=== PATIENT | male | born 1970 | race Caucasian/White ===

== ENCOUNTER → 2016-04-23 | Outpatient (REF) | payer OTHER | LOC: M LAB REF 19:08 | PROVIDERS: ATTEND Physician Assistant | DX: J02.9 Acute pharyngitis, unspecified (principal) ==

== ENCOUNTER → 2016-06-10 | Outpatient (CLI) | payer OTHER | LOC: M LAB 08:34 | PROVIDERS: ATTEND Surgery | DX: N35.9 Urethral stricture, unspecified (principal) ==

== ENCOUNTER 2016-06-15 02:14 | Emergency (ER) | payer OTHER ==
[~2016-06-15] VITALS: Ht 188 cm; Wt 136.1 kg
[2016-06-15 02:24] VITALS: BP 155/98
[2016-06-15] MEDS ORDERED: OMEP20CA3 (02:31)
[2016-06-15] MEDS ORDERED: CIAL20TA (02:31)
== END 2016-06-15 03:10 | disposition home or self-care (01) ==
LOC: M ED 03:07
DX: T83.090A Other mechanical complication of cystostomy catheter, initial encounter (principal); X58.XXXA Exposure to other specified factors, initial encounter; Y92.89 Other specified places as the place of occurrence of the external cause; Y93.89 Activity, other specified; Y99.8 Other external cause status; Z88.0 Allergy status to penicillin; Z79.899 Other long term (current) drug therapy

== ENCOUNTER 2018-05-11 20:59 | Emergency (ER) | payer OTHER ==
[~2018-05-11] VITALS: Ht 188 cm; Wt 138.6 kg
[~2018-05-11 20:59] MED LIST: CIAL20TA; OMEP20CA3
[2018-05-11 21:37] LABS: BASO % 0.3 % (0.0-1.0); EOS # 0.3 10^3/uL (0.0-0.50); EOS % 3.1 % (0.0-3.0); HEMATOCRIT 42.8 % (42.0-52.0); HEMOGLOBIN 14.7 g/dl (13.5-17.5); LYMPH # 3.4 10^3/uL (1.5-4.5); LYMPH % 35.5 % (24.0-44.0); MEAN CORPUSCULAR HEMOGLOBIN 30.3 pg (27.0-33.0); MEAN CORPUSCULAR HGB CONC 34.3 g/dl (32.0-36.5); MEAN CORPUSCULAR VOLUME 88.2 fl (80.0-96.0); MONO # 0.8 10^3/uL (0.0-0.8); MONO % 7.8 % (0.0-5.0); NEUTROPHILS # 5.1 10^3/uL (1.8-7.7); NEUTROPHILS % 52.9 % (36.0-66.0); PLATELET COUNT, AUTOMATED 291 10^3/uL (150-450); RED BLOOD COUNT 4.85 10^6/uL (4.30-6.10); WHITE BLOOD COUNT 9.6 10^3/uL (4.0-10.0)
--- NOTE | 2018-05-11 21:53 | REP ---
Clinical: Syncope . Comparison: None . Findings: The ventricles, sulci, and cisterns are normal in position and appearance. August-white differentiation is maintained. No acute intracranial hemorrhage, mass/mass effect, pathology or trauma/injury. No evidence for acute infarction. No extra-axial fluid collection. Calvarium is intact. Paranasal sinuses and mastoid air cells are within normal limits. Impression: Normal noncontrast head CT. No evidence for acute intracranial pathology or trauma/injury. Electronically Signed by Dwight Dyer MD 05/11/2018 09:45 P
[2018-05-11 22:07] LABS: ALBUMIN 3.7 GM/DL (3.2-5.2); ALT/SGPT 40 U/L (12-78); BILIRUBIN,DIRECT 0.1 MG/DL (0.0-0.2); BILIRUBIN,TOTAL 0.4 MG/DL (0.2-1.0); BLOOD UREA NITROGEN 15 MG/DL (7-18); CALCIUM LEVEL 8.6 MG/DL (8.5-10.1); CARBON DIOXIDE LEVEL 26 MEQ/L (21-32); CHLORIDE LEVEL 107 MEQ/L (98-107); CPK CREATINE PHOSPHOKINASE 191 U/L (39-308); CREATININE FOR GFR 1.21 MG/DL (0.70-1.30); GLOMERULAR FILTRATION RATE > 60.0 (>60); GLUCOSE, FASTING 125 MG/DL (70-100); LIPASE 126 U/L (73-393); MB/CK RELATIVE INDEX 1.31 (< OR =4); POTASSIUM SERUM 3.8 MEQ/L (3.5-5.1); SODIUM LEVEL 141 MEQ/L (136-145); TROPONIN I < 0.02 NG/ML (< 0.10)
[2018-05-11] MEDS ORDERED: ISOVUE-370 76% 125ML VIAL (Q9967 PER ML) As Ordered ONE (23:04)
--- NOTE | 2018-05-12 00:08 | REPVR ---
EXAM: CT Angiography Chest With Contrast EXAM DATE/TIME: 05/11/2018 11:12 PM CLINICAL HISTORY: 47 years old, male; Signs and symptoms; Other: Syncope TECHNIQUE: Imaging protocol: Axial computed tomographic angiography images of the chest with intravenous contrast using CT angiography protocol. Coronal and sagittal reformatted images were created and reviewed. 3D rendering: MIP reconstructed images were created and reviewed. Radiation optimization: All CT scans at this facility use at least one of these dose optimization techniques: automated exposure control; mA and/or kV adjustment per patient size (includes targeted exams where dose is matched to clinical indication); or iterative reconstruction. Contrast material: isovue 370 Contrast volume: 75 ml Contrast route: iv COMPARISON: CR PORTABLE CHEST X-RAY 05/11/2018 9:22 PM FINDINGS: Pulmonary arteries: Contrast opacification satisfactory. No intraluminal filling defect. Aorta: Unremarkable. No aneurysm or dissection. Lungs: Mild linear stranding and groundglass, likely due to atelectasis and/or scarring. No focal consolidation. Scattered calcified granulomata. Pleural space: Unremarkable. No pneumothorax. No pleural effusion. Heart: Unremarkable. No cardiomegaly. No pericardial effusion. Lymph nodes: No pathologically enlarged lymph nodes. Bones/joints: No acute osseous abnormality. Soft tissues: Grossly unremarkable. IMPRESSION: 1. No CT evidence of pulmonary embolism. 2. Additional findings, as above. Electronically signed by: Ronaldo Carpenter On 05/12/2018 00:07:58 AM
[2018-05-12 01:19] LABS: CPK CREATINE PHOSPHOKINASE 164 U/L (39-308); MB/CK RELATIVE INDEX 1.46 (< OR =4); TROPONIN I < 0.02 NG/ML (< 0.10)
[2018-05-12 03:43] LABS: CPK CREATINE PHOSPHOKINASE 147 U/L (39-308); MB/CK RELATIVE INDEX 1.22 (< OR =4); TROPONIN I < 0.02 NG/ML (< 0.10)
[2018-05-12 04:06] VITALS: BP 140/76
--- NOTE | 2018-05-12 09:21 | REP ---
Clinical: Syncope/near-syncopal episode . Comparison: 10/20/2008 . Findings: The mediastinum and cardiac silhouette are stable and within normal limits for portable technique. The lung colon are clear without acute consolidation, effusion, or pneumothorax. Skeletal structures are intact. Impression: No acute cardiopulmonary process appreciated. Electronically Signed by Dwight Dyer MD 05/12/2018 09:12 A
--- NOTE | 2018-05-12 11:07 | ECGEPIP ---
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
--- NOTE | 2018-05-12 11:16 | ECGEPIP ---
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
--- NOTE | 2018-05-12 11:19 | ECGEPIP ---
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
== END 2018-05-12 04:07 | disposition home or self-care (01) ==
LOC: M ED 20:59
DX: R55 Syncope and collapse (principal); K21.9 Gastro-esophageal reflux disease without esophagitis; Z79.899 Other long term (current) drug therapy; Z88.0 Allergy status to penicillin
CPT/HCPCS: 36415; 70450; 71045; 71275; 80048; 80076; 82550; 82553; 83690; 84443; 84484; 85025; 93005; 93041; 94760; 99285; Q9967

== ENCOUNTER → 2019-01-29 | Outpatient (CLI) | payer OTHER ==
[~2019-01-29] MED LIST changes: +OMEP-172; -OMEP20CA3
--- NOTE | 2019-01-29 19:14 | REP ---
Examination Requested: Cookie Swallow Reason For Exam: Dysphasia The procedure was performed by JOAN Edward, under the direct supervision of Dr. August. The procedure was performed with Luciana Yang from speech pathology present. 5 ml aliquots of thin, pudding, mixed fruit, soft food, hard food and pill consistency barium was administered. No aspiration or penetration was visualized throughout the course of the exam. The detailed report of this examination will be provided by speech pathology. 0.8 minutes of fluoroscopy time was utilized for this procedure. Reviewed by JOAN Salguero 01/29/2019 04:24 P Electronically Signed by Benitez August MD 01/29/2019 07:05 P
== END ==
LOC: M ST 12:57
PROVIDERS: ATTEND Otolaryngology
DX: R13.13 Dysphagia, pharyngeal phase (principal)

== ENCOUNTER 2019-03-25 12:15 | Day surgery (SDC) | payer OTHER ==
[~2019-03-25] VITALS: Ht 188 cm; Wt 139.2 kg
[~2019-03-25 12:15] MED LIST changes: +MELO15TA28 PO; +NS 1,000 ML IV ONE; -OMEP-172; +OMEP1CAP73
[2019-03-25] MEDS ORDERED: propofoL 200 MG/20 ML VIAL As Ordered ONE ×2 (13:23→14:10)
[2019-03-25] MEDS ORDERED: LIDOCAINE 2% INJ 100 MG/5 ML SDV (FOR ANES.) As Ordered ONE (13:25)
[2019-03-25] MEDS ORDERED: fentaNYL 100 MCG/2 ML INJECTION (J3010) As Ordered ONE (13:30)
[2019-03-25 14:37] VITALS: BP 116/71
--- NOTE | 2019-03-25 14:50 | ROOR ---
Patient Name: Babak Guerra Procedure Date: 03/25/2019 1:52 PM Date of : 1970 Age: 48 Room: [facility] Gender: Male Note Status: Finalized Procedure: Upper GI endoscopy Indications: Dysphagia, Suspected gastro-esophageal reflux disease Providers: Johnathan Wiley MD Referring MD: Farrukh Ash MD Requesting Provider: Medicines: Monitored Anesthesia Care Complications: No immediate complications. Procedure: Pre-Anesthesia Assessment: - Prior to the procedure, a History and Physical was performed, and patient medications and allergies were reviewed. The patient is competent. The risks and benefits of the procedure and the sedation options and risks were discussed with the patient. All questions were answered and informed consent was obtained. Patient identification and proposed procedure were verified by the physician, the nurse and the anesthesiologist in the procedure room. Mental Status Examination: alert and oriented. Airway Examination: normal oropharyngeal airway and neck mobility. Respiratory Examination: clear to auscultation. CV Examination: normal. Prophylactic Antibiotics: The patient does not require prophylactic antibiotics. Prior Anticoagulants: The patient has taken no previous anticoagulant or antiplatelet agents. ASA Grade Assessment: II - A patient with mild systemic disease. After reviewing the risks and benefits, the patient was deemed in satisfactory condition to undergo the procedure. The anesthesia plan was to use monitored anesthesia care (MAC). Immediately prior to administration of medications, the patient was re-assessed for adequacy to receive sedatives. The heart rate, respiratory rate, oxygen saturations, blood pressure, adequacy of pulmonary ventilation, and response to care were monitored throughout the procedure. The physical status of the patient was re-assessed after the procedure. The Endoscope was introduced through the mouth, and advanced to the second part of duodenum. The upper GI endoscopy was accomplished without difficulty. The patient tolerated the procedure well. Findings: Normal mucosa was found in the entire esophagus. Biopsies were obtained from the proximal and distal esophagus with cold forceps for histology of suspected eosinophilic esophagitis. Verification of patient identification for the specimen was done by the physician and nurse using the patient's name, date and medical record number. Estimated blood loss was minimal. Scattered mild inflammation characterized by erythema, friability and granularity was found in the gastric antrum. Biopsies were taken with a cold forceps for Helicobacter pylori testing. The duodenal bulb and second portion of the duodenum were normal. Impression: - Normal mucosa was found in the entire esophagus. Biopsied. - Gastritis. Biopsied. - Normal duodenal bulb and second portion of the duodenum. Recommendation: - Patient has a contact number available for emergencies. The signs and symptoms of potential delayed complications were discussed with the patient. Return to normal activities tomorrow. Written discharge instructions were provided to the patient. - Resume previous diet. - Continue present medications. - Follow an antireflux regimen. - Await pathology results. - Telephone GI clinic for pathology results in 2 weeks. - Perform routine esophageal manometry if symptoms persist. - Return to primary care physician. Johnathan Wiley MD Johnathan Wiley MD 03/25/2019 2:49:55 PM Electronically signed by Johnathan Wiley MD Number of Addenda: 0 Note Initiated On: 03/25/2019 1:52 PM Estimated Blood Loss: Estimated blood loss was minimal.
== END 2019-03-25 14:57 | disposition home or self-care (01) ==
LOC: M OPP 12:15
PROVIDERS: ATTEND Internal Medicine Gastroenterology
DX: K29.70 Gastritis, unspecified, without bleeding (principal); R13.10 Dysphagia, unspecified; Z79.899 Other long term (current) drug therapy; Z88.0 Allergy status to penicillin; Z91.89 Other specified personal risk factors, not elsewhere classified
CPT/HCPCS: 43239; 88305; J3010

== ENCOUNTER → 2020-01-22 | Outpatient (CLI) | payer OTHER ==
[~2020-01-22] MED LIST changes: +FLUT22IN INH; -NS 1,000 ML IV ONE
== END ==
LOC: M LABSMTC 11:45
PROVIDERS: ATTEND Anesthesiology
DX: Z01.812 Encounter for preprocedural laboratory examination (principal); Z20.828 Contact with and (suspected) exposure to other viral communicable diseases

== ENCOUNTER 2020-01-27 10:30 | Day surgery (SDC) | payer OTHER ==
[~2020-01-27] VITALS: Ht 188 cm; Wt 139.7 kg
[~2020-01-27 10:30] MED LIST changes: +NS 1,000 ML IV ONE
[2020-01-27] MEDS ORDERED: LIDOCAINE 2% 100MG/5ML SDV (FOR ANES.) As Ordered ONE (11:19)
[2020-01-27] MEDS ORDERED: propofoL 200 MG/20 ML VIAL As Ordered ONE (11:19)
--- NOTE | 2020-01-27 12:52 | ROOR ---
Patient Name: Babak Guerra Procedure Date: 01/27/2020 11:37 AM Date of : 1970 Age: 49 Room: [facility] Gender: Male Note Status: Finalized Procedure: Upper GI endoscopy Indications: Dysphagia, Follow-up of eosinophilic esophagitis Providers: Johnathan Wiley MD Referring MD: Farrukh Ash MD Requesting Provider: Medicines: Monitored Anesthesia Care Complications: No immediate complications. Procedure: Pre-Anesthesia Assessment: - Prior to the procedure, a History and Physical was performed, and patient medications and allergies were reviewed. The patient is competent. The risks and benefits of the procedure and the sedation options and risks were discussed with the patient. All questions were answered and informed consent was obtained. Patient identification and proposed procedure were verified by the physician, the nurse and the anesthesiologist in the procedure room. Mental Status Examination: alert and oriented. Airway Examination: normal oropharyngeal airway and neck mobility. Respiratory Examination: clear to auscultation. CV Examination: normal. Prophylactic Antibiotics: The patient does not require prophylactic antibiotics. Prior Anticoagulants: The patient has taken no previous anticoagulant or antiplatelet agents. ASA Grade Assessment: II - A patient with mild systemic disease. After reviewing the risks and benefits, the patient was deemed in satisfactory condition to undergo the procedure. The anesthesia plan was to use monitored anesthesia care (MAC). Immediately prior to administration of medications, the patient was re-assessed for adequacy to receive sedatives. The heart rate, respiratory rate, oxygen saturations, blood pressure, adequacy of pulmonary ventilation, and response to care were monitored throughout the procedure. The physical status of the patient was re-assessed after the procedure. The Endoscope was introduced through the mouth, and advanced to the second part of duodenum. The upper GI endoscopy was accomplished without difficulty. The patient tolerated the procedure well. Findings: Normal mucosa was found in the entire esophagus. Biopsies were obtained from the proximal and distal esophagus with cold forceps for histology of suspected eosinophilic esophagitis. Verification of patient identification for the specimen was done by the physician and nurse using the patient's name, date and medical record number. Estimated blood loss was minimal. The entire examined stomach was normal. The duodenal bulb and second portion of the duodenum were normal. Impression: - Normal mucosa was found in the entire esophagus. Biopsied. - Normal stomach. - Normal duodenal bulb and second portion of the duodenum. Recommendation: - Patient has a contact number available for emergencies. The signs and symptoms of potential delayed complications were discussed with the patient. Return to normal activities tomorrow. Written discharge instructions were provided to the patient. - High fiber diet. - Continue present medications. - Await pathology results. - Taper the dose of the swallowed flovent to one puff twice daily for next 3 months. - Continue the elimination diet ( avoid the food allergens). - Telephone GI clinic for pathology results in 2 weeks. - Return to primary care physician. Procedure Code(s): --- Professional --- 51655, Esophagogastroduodenoscopy, flexible, transoral; with biopsy, single or multiple Diagnosis Code(s): --- Professional --- R13.10, Dysphagia, unspecified K20.0, Eosinophilic esophagitis CPT copyright 2019 [employer]. All rights reserved. The codes documented in this report are preliminary and upon benefits officer review may be revised to meet current compliance requirements. Johnathan Wiley MD Johnathan Wiley MD 01/27/2020 12:51:52 PM Electronically signed by Johnathan Wiley MD Number of Addenda: 0 Note Initiated On: 01/27/2020 11:37 AM Estimated Blood Loss: Estimated blood loss was minimal.
[2020-01-27 12:55] VITALS: BP 133/88
== END 2020-01-27 13:00 | disposition home or self-care (01) ==
LOC: M OPP 10:30
PROVIDERS: ATTEND Internal Medicine Gastroenterology
DX: K21.9 Gastro-esophageal reflux disease without esophagitis (principal); R13.10 Dysphagia, unspecified; K20.0 Eosinophilic esophagitis; Z09 Encounter for follow-up examination after completed treatment for conditions other than malignant neoplasm; Z79.899 Other long term (current) drug therapy; Z88.0 Allergy status to penicillin

== ENCOUNTER → 2021-04-02 | Outpatient (CLI) | payer OTHER ==
[~2021-04-02] MED LIST changes: -NS 1,000 ML IV ONE; -OMEP1CAP73; +OMEP1CAP73 PO
== END ==
LOC: M LABSMTC 10:48
PROVIDERS: ATTEND Anesthesiology
DX: Z01.812 Encounter for preprocedural laboratory examination (principal); Z20.822 Contact with and (suspected) exposure to COVID-19

== ENCOUNTER 2021-04-07 08:16 | Day surgery (SDC) | payer OTHER ==
[~2021-04-07] VITALS: Ht 188 cm; Wt 133.7 kg
[~2021-04-07 08:16] MED LIST changes: +NS 1,000 ML IV ONE
[2021-04-07] MEDS ORDERED: LIDOCAINE 2% 100MG/5ML SDV (FOR ANES.) As Ordered ONE (09:24)
[2021-04-07] MEDS ORDERED: propofoL 200 MG/20 ML VIAL As Ordered ONE (09:24)
[2021-04-07 10:50] VITALS: BP 134/87
== END 2021-04-07 11:08 | disposition home or self-care (01) ==
LOC: M OPP 08:16
PROVIDERS: ATTEND Internal Medicine Gastroenterology
DX: Z12.11 Encounter for screening for malignant neoplasm of colon (principal); K60.3 Anal fistula; K63.2 Fistula of intestine; K57.30 Diverticulosis of large intestine without perforation or abscess without bleeding; K64.8 Other hemorrhoids; Z88.0 Allergy status to penicillin

== ENCOUNTER 2021-10-28 16:43 | Inpatient (IN) | payer OTHER ==
[~2021-10-28] VITALS: Ht 188 cm; Wt 132.7 kg
[~2021-10-28 16:43] MED LIST changes: -ACET650T61 PO; -DICL20GE TP; -ELIQ5TAB PO; -FISH1CAP26 PO; -OMEG10002 PO
[2021-10-28] MEDS ORDERED: ISOVUE-370 76% 100ML VIAL As Ordered ONE (19:44)
[2021-10-28 20:12] LABS: BASO # 0.1 10^3/uL (0.0-0.2); BASO % 0.6 % (0.0-1.0); EOS % 8.4 % (0.0-3.0); HEMOGLOBIN 14.7 g/dl (13.5-17.5); LYMPH # 3.1 10^3/uL (1.5-5.0); LYMPH % 25.1 % (24.0-44.0); MEAN CORPUSCULAR HEMOGLOBIN 30.4 pg (27.0-33.0); MEAN CORPUSCULAR HGB CONC 34.2 g/dl (32.0-36.5); MEAN CORPUSCULAR VOLUME 88.8 fl (80.0-96.0); MONO # 1.2 10^3/uL (0.0-0.8); MONO % 9.8 % (2.0-8.0); NEUTROPHILS # 6.9 10^3/uL (1.5-8.5); NEUTROPHILS % 55.5 % (36.0-66.0); PLATELET COUNT, AUTOMATED 347 10^3/uL (150-450); RED BLOOD COUNT 4.84 10^6/uL (4.30-6.10); WHITE BLOOD COUNT 12.4 10^3/uL (4.0-10.0)
[2021-10-28 20:17] LABS: INR 1.08; PROTHROMBIN TIME 14.4 SECONDS (12.7-14.5)
[2021-10-28 20:18] LABS: PARTIAL THROMBOPLASTIN TIME 30.7 SECONDS (25.9-37.0)
[2021-10-28 20:48] LABS: BILIRUBIN,DIRECT 0.2 MG/DL (0.0-0.2); BILIRUBIN,TOTAL 0.7 MG/DL (0.2-1.0)
[2021-10-28] MEDS ORDERED: HEPARIN SOD (PORCINE) 5000UNITS/ML 1ML VIAL/SYRINGE IV ONE (22:30)
[2021-10-28] MEDS ORDERED: HEPARIN DRIP 25,000 UNITS in IV 1 EA IV SCH (22:30)
[2021-10-28] MEDS ORDERED: OMEG10002 PO (23:06)
[2021-10-28] MEDS ORDERED: FISH1CAP26 PO (23:07)
[2021-10-28] MEDS ORDERED: HOME MED LIST COMPLETE! XX SCH (23:10)
[2021-10-29] MEDS ORDERED: MOM 30ML SUSPENSION UDC PO PRN (00:15)
[2021-10-29] MEDS ORDERED: HEPARIN SOD (PORCINE) 5000UNITS/ML 1ML VIAL/SYRINGE IV PRN (00:15)
[2021-10-29 01:05] VITALS: BP 132/82
[2021-10-29 04:22] VITALS: BP 116/74
[2021-10-29 05:06] LABS: HEMATOCRIT 38.8 % (42.0-52.0); MEAN CORPUSCULAR HEMOGLOBIN 29.9 pg (27.0-33.0); MEAN CORPUSCULAR HGB CONC 33.5 g/dl (32.0-36.5); MEAN CORPUSCULAR VOLUME 89.2 fl (80.0-96.0); PLATELET COUNT, AUTOMATED 309 10^3/uL (150-450); RED BLOOD COUNT 4.35 10^6/uL (4.30-6.10); WHITE BLOOD COUNT 9.8 10^3/uL (4.0-10.0)
[2021-10-29 05:57] LABS: ALBUMIN 3.3 GM/DL (3.2-5.2); ALT/SGPT 28 U/L (12-78); BILIRUBIN,TOTAL 0.5 MG/DL (0.2-1.0); BLOOD UREA NITROGEN 15 MG/DL (7-18); CALCIUM LEVEL 8.6 MG/DL (8.5-10.1); CARBON DIOXIDE LEVEL 27 MEQ/L (21-32); CHLORIDE LEVEL 106 MEQ/L (98-107); CREATININE FOR GFR 1.05 MG/DL (0.70-1.30); GLOMERULAR FILTRATION RATE > 60.0 (>56); GLUCOSE, FASTING 86 MG/DL (70-100); POTASSIUM SERUM 3.8 MEQ/L (3.5-5.1); SODIUM LEVEL 140 MEQ/L (136-145); TOTAL PROTEIN 6.6 GM/DL (6.4-8.2)
[2021-10-29 08:29] VITALS: BP 130/78
[2021-10-29 08:34] LABS: NT-PRO BNP 52 PG/ML (<125)
[2021-10-29] MEDS: OMEPRAZOLE 20MG CAP PO SCH (09:17)
[2021-10-29 11:43] VITALS: BP 139/76
[2021-10-29] MEDS: HEPARIN DRIP 25,000 UNITS in IV 1 EA IV SCH ×2 (11:47→22:56)
[2021-10-29 16:29] VITALS: BP 130/70
[2021-10-29 20:12] VITALS: BP 133/75
[2021-10-30 00:10] VITALS: BP 129/61
[2021-10-30 04:07] VITALS: BP 132/71
[2021-10-30 05:34] LABS: HEMATOCRIT 39.3 % (42.0-52.0); HEMOGLOBIN 12.9 g/dl (13.5-17.5); MEAN CORPUSCULAR HEMOGLOBIN 29.9 pg (27.0-33.0); MEAN CORPUSCULAR HGB CONC 32.8 g/dl (32.0-36.5); PLATELET COUNT, AUTOMATED 321 10^3/uL (150-450); RED BLOOD COUNT 4.32 10^6/uL (4.30-6.10); WHITE BLOOD COUNT 9.7 10^3/uL (4.0-10.0)
[2021-10-30 08:01] VITALS: BP 137/76
[2021-10-30] MEDS: OMEPRAZOLE 20MG CAP PO SCH (08:57)
[2021-10-30] MEDS: HEPARIN DRIP 25,000 UNITS in IV 1 EA IV SCH (10:55)
[2021-10-30 12:11] VITALS: BP 128/79
[2021-10-30 16:00] VITALS: BP 135/81
[2021-10-30] MEDS ORDERED: DICL20GE TP (16:08)
[2021-10-30] MEDS ORDERED: ELIQ5TAB PO (16:08)
[2021-10-30] MEDS ORDERED: ACET650T61 PO (16:08)
[2021-10-30] MEDS ORDERED: APIXABAN 5 MG TAB (ELIQUIS) PO SCH (17:00)
[2021-10-30 19:45] VITALS: BP 141/80
== END 2021-10-30 20:58 | disposition home or self-care (01) | DRG 197 ==
LOC: M ED 16:43 → M ED INP 23:51 → ENRESERV 10-29 00:20 → M PCU 10-29 01:04
PROVIDERS: ADMIT Family Medicine; ATTEND Student in an Organized Health Care Education/Training Program
DX: I82.412 Acute embolism and thrombosis of left femoral vein (principal); I27.20 Pulmonary hypertension, unspecified; I26.99 Other pulmonary embolism without acute cor pulmonale; I82.432 Acute embolism and thrombosis of left popliteal vein; Z88.0 Allergy status to penicillin; Z79.899 Other long term (current) drug therapy

== ENCOUNTER → 2021-10-28 | Outpatient (CLI) | payer OTHER ==
[~2021-10-28] MED LIST changes: +ACET650T61 PO; +DICL20GE TP; +ELIQ5TAB PO; +FISH1CAP26 PO; -NS 1,000 ML IV ONE; +OMEG10002 PO
== END ==
LOC: M RAD 15:54
PROVIDERS: ATTEND Physician Assistant Medical
DX: R06.02 Shortness of breath (principal)

== ENCOUNTER → 2021-11-03 | Outpatient (REF) | payer OTHER ==
[~2021-11-03] MED LIST changes: +ACET650T61 PO; +DICL20GE TP; +ELIQ5TAB PO; +FISH1CAP26 PO; +OMEG10002 PO
[2021-11-05 10:14] LABS: DRVV SCREEN 103.9 SEC
[2021-11-05 10:57] LABS: PTT LUPUS TYPE ANTICOAG SCREEN 2.8 (0-1.2)
[2021-11-05 11:06] LABS: DRVV CONFIRM 69.8 SEC; LUPUS CONFIRM RATIO 1.8
[2021-11-05 11:21] LABS: NORMALIZED RATIO 1.56 (0.00-1.20)
== END ==
LOC: M LAB REF 12:00
PROVIDERS: ATTEND Physician Assistant Medical
DX: I82.402 Acute embolism and thrombosis of unspecified deep veins of left lower extremity (principal)

== ENCOUNTER → 2022-03-07 | Outpatient (CLI) | payer OTHER | LOC: M SLEEP 20:00 | PROVIDERS: ATTEND Internal Medicine Pulmonary Disease | DX: G47.33 Obstructive sleep apnea (adult) (pediatric) (principal); R40.0 Somnolence ==

== ENCOUNTER → 2022-07-04 | Outpatient (CLI) | payer OTHER | LOC: M RAD 14:25 | PROVIDERS: ATTEND Internal Medicine Hematology & Oncology | DX: M79.652 Pain in left thigh (principal); Z86.718 Personal history of other venous thrombosis and embolism ==

== ENCOUNTER → 2023-06-27 | Outpatient (CLI) | payer OTHER | LOC: M WUC 14:05 | PROVIDERS: ATTEND Physician Assistant | DX: J06.9 Acute upper respiratory infection, unspecified (principal); J20.9 Acute bronchitis, unspecified; R06.02 Shortness of breath ==

== ENCOUNTER → 2023-09-19 | Outpatient (REF) | payer OTHER | LOC: M LAB REF 09:25 | PROVIDERS: ATTEND Family Medicine | DX: R19.7 Diarrhea, unspecified (principal) ==

== ENCOUNTER → 2024-05-28 | Outpatient (REF) | payer OTHER | LOC: M LAB REF 10:05 | PROVIDERS: ATTEND Internal Medicine Gastroenterology | DX: K59.1 Functional diarrhea (principal); K20.0 Eosinophilic esophagitis; Z12.11 Encounter for screening for malignant neoplasm of colon ==

== ENCOUNTER → 2024-08-18 | Outpatient (CLI) | payer OTHER ==
[~2024-08-18] MED LIST changes: +ISOVUE-370 76% 100 ML VIAL As Ordered ONE
== END ==
LOC: M RAD 14:33
PROVIDERS: ATTEND Internal Medicine Gastroenterology
DX: R19.5 Other fecal abnormalities (principal); R19.7 Diarrhea, unspecified
CPT/HCPCS: 74177; Q9967

== ENCOUNTER → 2025-01-13 | Outpatient (REF) | payer OTHER ==
[~2025-01-13] MED LIST changes: -ISOVUE-370 76% 100 ML VIAL As Ordered ONE; +TUME1CAP PO
== END ==
LOC: M LAB REF 19:54
PROVIDERS: ATTEND Physician Assistant
DX: J06.9 Acute upper respiratory infection, unspecified (principal)